=== PATIENT | male | born 1955 | race Caucasian/White ===

== ENCOUNTER 2017-09-17 14:38 | Inpatient (IN) | payer OTHER ==
[2017-09-17] MEDS: SOD CHLORIDE 0.9% 1,000 ML IV (14:45)
[2017-09-17 15:00] LABS: ADD MAN DIFF? NO
[2017-09-17 15:07] LABS: BASOPHIL # 0.1 10^3/ul (0.0-0.1); BASOPHILS % 0.8 % (0.0-2.0); EOSINOPHILS # 0.2 10^3/ul (0.0-0.5); HEMATOCRIT 39.5 % (42.0-52.0); HEMOGLOBIN 13.1 g/dl (14.0-18.0); LYMPHOCYTES # 1.4 10^3/ul (0.8-2.9); LYMPHOCYTES % 15.8 % (15.0-51.0); MEAN CORPUSCULAR HEMOGLOBIN 35.7 pg (29.0-33.0); MEAN CORPUSCULAR HGB CONC 33.2 g/dl (32.0-37.0); MEAN CORPUSCULAR VOLUME 107.6 fl (82.0-101.0); MEAN PLATELET VOLUME 10.9 fl (7.4-10.4); MONOCYTE # 0.3 10^3/ul (0.3-0.9); MONOCYTES % 3.2 % (0.0-11.0); PLATELET COUNT 127 10^3/UL (140-415); RED BLOOD COUNT 3.67 10^6/ul (4.70-6.10); RED CELL DISTRIBUTION WIDTH 15.2 % (11.5-14.5)
[2017-09-17 15:23] LABS: ANION GAP 13 (8-16); BLOOD UREA NITROGEN 21 mg/dl (7-20); CALCIUM 8.8 mg/dl (8.4-10.2); CARBON DIOXIDE 25 mmol/L (21-31); CHLORIDE 109 mmol/L (97-110); CREATININE 1.01 mg/dl (0.61-1.24); GLUCOSE 82 mg/dl (70-220); POTASSIUM 4.5 mmol/L (3.5-5.1); SODIUM 142 mmol/L (135-144)
[2017-09-17 15:35] LABS: TROPONIN-I < 0.012 ng/ml (0.000-0.120)
[2017-09-17 15:38] LABS: INR 1.05; PARTIAL THROMBOPLASTIN TIME 27.2 Sec (25.0-35.0); PROTIME 13.8 Sec (11.9-14.9); PT RATIO 1.1
[2017-09-17] MEDS: HYDROmorphONE 1 MG/5 ML IV SYRINGE IV (15:50)
[2017-09-17] MEDS: ONDANSETRON 4 MG INJ IV (16:17)
[2017-09-17] MEDS: HYDROmorphONE 1 MG/ML SYG IV ×2 (16:17→17:03)
[2017-09-17] MEDS: SOD CHLORIDE 0.45% 1,000 ML IV (17:11)
[2017-09-17] MEDS ORDERED: hydrALAzine 20 MG INJ IV (17:30)
[2017-09-17] MEDS ORDERED: NITROGLYCERIN (SL) 0.4 MG TAB SL (17:30)
[2017-09-17] MEDS ORDERED: MAGNESIUM HYDROXIDE 30ML CUP PO (17:30)
[2017-09-17] MEDS ORDERED: NA PHOSPHATE/BIPHOS 133 ML ENEMA PR (17:30)
[2017-09-17] MEDS ORDERED: DOCUSATE SODIUM 100 MG CAP PO (17:30)
[2017-09-17] MEDS ORDERED: ALBUTEROL/IPRATROPIUM (NEB) 3 ML AMP HHN (17:30)
[2017-09-17] MEDS ORDERED: HYDROCODONE/APAP (5/325) TAB PO (17:30)
[2017-09-17] MEDS ORDERED: ONDANSETRON 4 MG INJ IV ×2 (17:30)
[2017-09-17] MEDS ORDERED: NACL 0.9% 3 ML SYG IV (17:30)
[2017-09-17] MEDS ORDERED: ACETAMINOPHEN 325 MG TAB PO ×2 (17:30)
[2017-09-17 17:42] LABS: FREE T4 (FREE THYROXINE) 1.58 ng/dl (0.78-2.44)
[2017-09-17] MEDS: HYDROmorphONE 0.5 MG/0.5 ML SYG IV (20:39)
[2017-09-17] MEDS: morphine 2 MG INJ IV (22:53)
[2017-09-17] MEDS: LORAZEPAM 2 MG INJ IV (22:54)
[2017-09-18] MEDS: HYDROmorphONE 0.5 MG/0.5 ML SYG IV ×7 (02:33→22:14)
[2017-09-18 05:46] LABS: ADD MAN DIFF? NO
[2017-09-18 05:54] LABS: BASOPHIL # 0.1 10^3/ul (0.0-0.1); BASOPHILS % 0.7 % (0.0-2.0); EOSINOPHILS # 0.4 10^3/ul (0.0-0.5); EOSINOPHILS % 5.2 % (0.0-7.0); LYMPHOCYTES # 1.9 10^3/ul (0.8-2.9); LYMPHOCYTES % 26.9 % (15.0-51.0); MEAN CORPUSCULAR HEMOGLOBIN 35.5 pg (29.0-33.0); MEAN CORPUSCULAR HGB CONC 33.3 g/dl (32.0-37.0); MEAN CORPUSCULAR VOLUME 106.5 fl (82.0-101.0); MEAN PLATELET VOLUME 11.2 fl (7.4-10.4); MONOCYTE # 0.3 10^3/ul (0.3-0.9); MONOCYTES % 4.6 % (0.0-11.0); NEUTROPHIL # 4.5 10^3/ul (1.6-7.5); NEUTROPHILS % 62.5 % (39.0-77.0); PLATELET COUNT 117 10^3/UL (140-415); RED CELL DISTRIBUTION WIDTH 15.2 % (11.5-14.5)
[2017-09-18 05:54] LABS: WHITE BLOOD COUNT 7.1 10^3/ul (4.8-10.8)
[2017-09-18] MEDS: PANTOPRAZOLE 40 MG INJ IV (05:54)
[2017-09-18 06:02] LABS: CHOLESTEROL 151 mg/dl (100-200)
[2017-09-18 06:02] LABS: CHOL/HDL RATIO 4.7 RATIO; HDL CHOLESTEROL 32 mg/dl (30-78); LDL CHOLESTEROL,CALCULATED 96 mg/dl; TRIGLYCERIDES 116 mg/dl (0-149)
[2017-09-18 06:06] LABS: ANION GAP 7 (8-16); BLOOD UREA NITROGEN 22 mg/dl (7-20); CALCIUM 8.3 mg/dl (8.4-10.2); CARBON DIOXIDE 31 mmol/L (21-31); CHLORIDE 111 mmol/L (97-110); CREATININE 0.92 mg/dl (0.61-1.24); GLUCOSE 89 mg/dl (70-220); MAGNESIUM 1.9 mg/dl (1.7-2.5); PHOSPHORUS 3.1 mg/dl (2.5-4.9); POTASSIUM 4.6 mmol/L (3.5-5.1); SODIUM 144 mmol/L (135-144)
[2017-09-18 06:51] LABS: HEMOGLOBIN A1C 5.2 % (0-5.9)
[2017-09-18] MEDS: SOD CHLORIDE 0.45% 1,000 ML IV ×2 (09:30→09:51)
[2017-09-18] MEDS: morphine 2 MG INJ IV (09:48)
[2017-09-18] MEDS ORDERED: FENTAnyl 50 MCG/ML VIAL ×2 (16:18)
[2017-09-18] MEDS ORDERED: NEOSTIGMINE 3 MG/3 ML SYRINGE (16:18)
[2017-09-18] MEDS ORDERED: ALBUMIN HUMAN 5% 250 ML (16:18)
[2017-09-18] MEDS ORDERED: CEFAZOLIN 1 GM INJ (16:18)
[2017-09-18] MEDS ORDERED: ROCURONIUM 50 MG INJ (16:18)
[2017-09-18] MEDS ORDERED: PROPOFOL 20 ML (16:18)
[2017-09-18] MEDS ORDERED: GLYCOPYRROLATE 0.4 MG INJ (16:18)
[2017-09-18] MEDS ORDERED: MIDAZOLAM 1 MG/ML 2 ML INJ (16:18)
[2017-09-18] MEDS ORDERED: ONDANSETRON 4 MG INJ (16:18)
[2017-09-18] MEDS ORDERED: BUPIVACAINE 0.75%/DEXT (SPINAL) 2 ML INJ (16:18)
[2017-09-18] MEDS ORDERED: DEXAMETHASONE 4 MG/ML 1 ML INJ (16:18)
[2017-09-18] MEDS ORDERED: morphine SULFATE/PF (10 MG/10 ML) INJ (16:19)
[2017-09-18] MEDS ORDERED: DEXAMETHASONE 4 MG/ML 1 ML INJ IV (18:30)
[2017-09-18] MEDS ORDERED: LANSOPRAZOLE 30 MG CAP PO (18:30)
[2017-09-18] MEDS ORDERED: ACETAMINOPHEN 1000MG/100ML IV 100 ML IVPB (18:30)
[2017-09-18] MEDS ORDERED: ONDANSETRON 4 MG INJ IV (18:30)
[2017-09-18] MEDS: TRANEXAMIC ACID 1,000 MG in DEXTROSE 5% 100 ML IV ×2 (18:30→19:23)
[2017-09-18] MEDS ORDERED: oxyCODONE (CR) 10 MG TAB [oxyCONTIN] PO (18:30)
[2017-09-18] MEDS ORDERED: ROPIVACAINE 0.2% 60 ML, morphine SULFATE (PF) 4 MG, CLONIDINE 100 MCG, KETOROLAC 30 MG,... INJ (19:00)
[2017-09-18] MEDS: CEFAZOLIN 2 GM/50 ML (PMX) 50 ML (FOR WT < 120 KG) IVPB (19:02)
[2017-09-18] MEDS: POLYMYXIN B 500000 UNIT INJ (19:38)
[2017-09-18] MEDS: BACITRACIN 50000 UNITS INJ (19:38)
[2017-09-18] MEDS ORDERED: ALBUTEROL 0.083% (NEB) 2.5 MG/3 ML AMP HHN (20:00)
[2017-09-18] MEDS ORDERED: NALOXONE (0.4 MG/ML) INJ IV ×2 (20:00→21:00)
[2017-09-18] MEDS ORDERED: OXYCODONE/ACETAMINOPHEN (5/325) TAB PO ×2 (20:00)
[2017-09-18] MEDS ORDERED: IPRATROPIUM (NEB) 0.5 MG/2.5 ML AMP HHN (20:00)
[2017-09-18] MEDS ORDERED: DIPHENHYDRAMINE 50 MG INJ IV (20:00)
[2017-09-18] MEDS ORDERED: hydrALAzine 20 MG INJ IV (20:00)
[2017-09-18] MEDS ORDERED: TRIMETHOBENZAMIDE 100 MG/ML VIAL IM (20:00)
[2017-09-18] MEDS ORDERED: HYDROmorphONE 1 MG/5 ML IV SYRINGE IV ×3 (20:00)
[2017-09-18] MEDS ORDERED: EPHEDrine SULFATE 50 MG/5 ML SYG IV (20:00)
[2017-09-18] MEDS ORDERED: LABETALOL HCL 20MG INJ IV (20:00)
[2017-09-18] MEDS ORDERED: MIDAZOLAM 1 MG/ML 2 ML INJ IV (20:00)
[2017-09-18] MEDS ORDERED: FENTAnyl 50 MCG/ML VIAL IV ×2 (20:00)
[2017-09-18] MEDS ORDERED: oxyCODONE 5 MG TAB PO (21:00)
[2017-09-18] MEDS ORDERED: NACL 0.9% 3 ML SYG IV (21:00)
[2017-09-18] MEDS: FENTAnyl 50 MCG/ML VIAL IV (21:11)
[2017-09-18] MEDS: LACTATED RINGER'S 1,000 ML IV (21:18)
[2017-09-18] MEDS: ASPIRIN (EC) 325 MG TAB PO (21:25)
[2017-09-18] MEDS: CEFAZOLIN 1 GM/50 ML (PMX) 50 ML IVPB (21:25)
[2017-09-18] MEDS: MEPERIDINE 25 MG INJ IV (21:26)
[2017-09-18] MEDS: ONDANSETRON 4 MG INJ IV (21:26)
[2017-09-18] MEDS: LORAZEPAM 2 MG INJ IV (22:23)
[2017-09-18] MEDS: oxyCODONE 5 MG TAB PO (23:19)
[2017-09-19] MEDS: HYDROmorphONE 1 MG/ML SYG IV (01:54)
[2017-09-19] MEDS: morphine (ER) 30 MG TAB PO (02:08)
[2017-09-19] MEDS: HYDROmorphONE 0.5 MG/0.5 ML SYG IV (03:59)
[2017-09-19] MEDS: oxyCODONE 5 MG TAB PO ×6 (04:01→23:34)
[2017-09-19] MEDS: LORAZEPAM 2 MG INJ IV (04:01)
[2017-09-19 05:03] LABS: ADD MAN DIFF? NO
[2017-09-19 05:06] LABS: WHITE BLOOD COUNT 7.5 10^3/ul (4.8-10.8)
[2017-09-19 05:06] LABS: ABNORMAL IP MESSAGE 1; BASOPHILS % 0.1 % (0.0-2.0); HEMATOCRIT 29.7 % (42.0-52.0); HEMOGLOBIN 9.7 g/dl (14.0-18.0); LYMPHOCYTES # 0.5 10^3/ul (0.8-2.9); MEAN CORPUSCULAR HEMOGLOBIN 35.3 pg (29.0-33.0); MEAN CORPUSCULAR HGB CONC 32.7 g/dl (32.0-37.0); MEAN PLATELET VOLUME 10.4 fl (7.4-10.4); MONOCYTE # 0.2 10^3/ul (0.3-0.9); MONOCYTES % 2.7 % (0.0-11.0); NEUTROPHIL # 6.8 10^3/ul (1.6-7.5); NEUTROPHILS % 90.8 % (39.0-77.0); PLATELET COUNT 133 10^3/UL (140-415); POSITIVE DIFF @See below; RED BLOOD COUNT 2.75 10^6/ul (4.70-6.10); RED CELL DISTRIBUTION WIDTH 14.7 % (11.5-14.5)
[2017-09-19] MEDS: SOD CHLORIDE 0.45% 1,000 ML IV ×2 (05:22→20:00)
[2017-09-19] MEDS: CEFAZOLIN 1 GM/50 ML (PMX) 50 ML IVPB ×2 (05:23→13:58)
[2017-09-19 05:27] LABS: ANION GAP 11 (8-16); BLOOD UREA NITROGEN 12 mg/dl (7-20); CALCIUM 8.5 mg/dl (8.4-10.2); CARBON DIOXIDE 27 mmol/L (21-31); CHLORIDE 108 mmol/L (97-110); CREATININE 0.72 mg/dl (0.61-1.24); GLUCOSE 154 mg/dl (70-220); SODIUM 141 mmol/L (135-144)
[2017-09-19 05:33] LABS: INR 1.07; PT RATIO 1.1
[2017-09-19] MEDS: PANTOPRAZOLE 40 MG INJ IV (05:36)
[2017-09-19] MEDS: CELECOXIB 200 MG CAP PO ×2 (08:13→21:53)
[2017-09-19] MEDS: ASPIRIN (EC) 325 MG TAB PO ×2 (08:14→21:53)
[2017-09-19 11:20] LABS: ADD UMIC YES; UR ASCORBIC ACID NEGATIVE (NEGATIVE); UR BACTERIA FEW /HPF (NONE SEEN); UR BILIRUBIN (Dip) NEGATIVE (NEGATIVE); UR BLOOD (Dip) 1+ mg/dL (NEGATIVE); UR CLARITY CLEAR (CLEAR); UR COLOR YELLOW (YELLOW); UR GLUCOSE (Dip) NEGATIVE (NEGATIVE); UR KETONES (Dip) 1+ mg/dL (NEGATIVE); UR LEUKOCYTE ESTERASE (Dip) TRACE Leu/ul (NEGATIVE); UR NITRITE (Dip) NEGATIVE (NEGATIVE); UR RBC 2 /HPF (0-5); UR SPECIFIC GRAVITY (Dip) 1.008 (1.003-1.030); UR TOTAL PROTEIN (Dip) NEGATIVE (NEGATIVE); UR UROBILINOGEN (Dip) NEGATIVE (NEGATIVE); UR WBC 1 /HPF (0-5)
[2017-09-19] MEDS: LACTATED RINGER'S 1,000 ML IV (18:30)
[2017-09-20] MEDS: oxyCODONE 5 MG TAB PO ×8 (03:11→23:57)
[2017-09-20 05:46] LABS: ADD MAN DIFF? NO
[2017-09-20 05:47] LABS: BASOPHILS % 0.1 % (0.0-2.0); EOSINOPHILS % 0.3 % (0.0-7.0); HEMATOCRIT 24.5 % (42.0-52.0); HEMOGLOBIN 8.3 g/dl (14.0-18.0); LYMPHOCYTES # 2.9 10^3/ul (0.8-2.9); LYMPHOCYTES % 24.8 % (15.0-51.0); MEAN CORPUSCULAR HEMOGLOBIN 35.6 pg (29.0-33.0); MEAN CORPUSCULAR HGB CONC 33.9 g/dl (32.0-37.0); MEAN CORPUSCULAR VOLUME 105.2 fl (82.0-101.0); MEAN PLATELET VOLUME 10.9 fl (7.4-10.4); MONOCYTE # 0.9 10^3/ul (0.3-0.9); NEUTROPHIL # 7.7 10^3/ul (1.6-7.5); NEUTROPHILS % 66.4 % (39.0-77.0); PLATELET COUNT 134 10^3/UL (140-415); RED BLOOD COUNT 2.33 10^6/ul (4.70-6.10); RED CELL DISTRIBUTION WIDTH 14.7 % (11.5-14.5)
[2017-09-20 05:47] LABS: WHITE BLOOD COUNT 11.6 10^3/ul (4.8-10.8)
[2017-09-20] MEDS: PANTOPRAZOLE 40 MG INJ IV (06:08)
[2017-09-20 06:14] LABS: INR 1.13; PROTIME 14.7 Sec (11.9-14.9); PT RATIO 1.1
[2017-09-20 06:18] LABS: ANION GAP 6 (8-16); BLOOD UREA NITROGEN 13 mg/dl (7-20); CALCIUM 8.5 mg/dl (8.4-10.2); CARBON DIOXIDE 29 mmol/L (21-31); CHLORIDE 109 mmol/L (97-110); CREATININE 0.88 mg/dl (0.61-1.24); GLUCOSE 100 mg/dl (70-220); POTASSIUM 4.4 mmol/L (3.5-5.1); SODIUM 140 mmol/L (135-144)
[2017-09-20] MEDS: CELECOXIB 200 MG CAP PO ×2 (09:02→21:00)
[2017-09-20] MEDS: ASPIRIN (EC) 325 MG TAB PO ×2 (09:02→21:00)
[2017-09-20] MEDS: SOD CHLORIDE 0.45% 1,000 ML IV (14:50)
[2017-09-20] MEDS: LACTATED RINGER'S 1,000 ML IV (18:06)
[2017-09-21] MEDS: SOD CHLORIDE 0.45% 1,000 ML IV ×2 (02:19→17:30)
[2017-09-21] MEDS: oxyCODONE 5 MG TAB PO ×7 (02:56→21:18)
[2017-09-21 05:12] LABS: ADD MAN DIFF? NO
[2017-09-21 05:19] LABS: WHITE BLOOD COUNT 11.2 10^3/ul (4.8-10.8)
[2017-09-21 05:19] LABS: BASOPHILS % 0.4 % (0.0-2.0); EOSINOPHILS # 0.3 10^3/ul (0.0-0.5); EOSINOPHILS % 2.4 % (0.0-7.0); HEMATOCRIT 27.9 % (42.0-52.0); HEMOGLOBIN 9.1 g/dl (14.0-18.0); LYMPHOCYTES # 4.2 10^3/ul (0.8-2.9); LYMPHOCYTES % 37.2 % (15.0-51.0); MEAN CORPUSCULAR HEMOGLOBIN 35.1 pg (29.0-33.0); MEAN CORPUSCULAR HGB CONC 32.6 g/dl (32.0-37.0); MEAN CORPUSCULAR VOLUME 107.7 fl (82.0-101.0); MEAN PLATELET VOLUME 10.6 fl (7.4-10.4); MONOCYTE # 0.8 10^3/ul (0.3-0.9); MONOCYTES % 6.7 % (0.0-11.0); NEUTROPHIL # 5.9 10^3/ul (1.6-7.5); PLATELET COUNT 162 10^3/UL (140-415); RED BLOOD COUNT 2.59 10^6/ul (4.70-6.10); RED CELL DISTRIBUTION WIDTH 14.9 % (11.5-14.5)
[2017-09-21 05:34] LABS: INR 1.01; PROTIME 13.4 Sec (11.9-14.9)
[2017-09-21 05:42] LABS: ANION GAP 3 (8-16); BLOOD UREA NITROGEN 12 mg/dl (7-20); CALCIUM 8.8 mg/dl (8.4-10.2); CARBON DIOXIDE 34 mmol/L (21-31); CHLORIDE 107 mmol/L (97-110); CREATININE 0.92 mg/dl (0.61-1.24); GLUCOSE 88 mg/dl (70-220); SODIUM 140 mmol/L (135-144)
[2017-09-21] MEDS: PANTOPRAZOLE 40 MG INJ IV (05:55)
[2017-09-21] MEDS: ASPIRIN (EC) 325 MG TAB PO ×2 (08:58→20:31)
[2017-09-21] MEDS: CELECOXIB 200 MG CAP PO ×2 (08:58→20:31)
[2017-09-21] MEDS: LACTATED RINGER'S 1,000 ML IV (18:30)
[2017-09-21] MEDS ORDERED: ARTIFICIAL TEARS 15 ML OPH BOTH EYES (20:00)
[2017-09-21] MEDS: ARTIFICIAL TEARS 15 ML OPH BOTH EYES (20:51)
[2017-09-22] MEDS: oxyCODONE 5 MG TAB PO ×4 (00:08→09:18)
[2017-09-22 05:43] LABS: ADD MAN DIFF? NO
[2017-09-22 05:51] LABS: WHITE BLOOD COUNT 8.5 10^3/ul (4.8-10.8)
[2017-09-22 05:51] LABS: BASOPHIL # 0.1 10^3/ul (0.0-0.1); BASOPHILS % 0.8 % (0.0-2.0); EOSINOPHILS # 0.3 10^3/ul (0.0-0.5); EOSINOPHILS % 2.9 % (0.0-7.0); HEMATOCRIT 25.9 % (42.0-52.0); HEMOGLOBIN 8.6 g/dl (14.0-18.0); LYMPHOCYTES # 2.9 10^3/ul (0.8-2.9); LYMPHOCYTES % 34.2 % (15.0-51.0); MEAN CORPUSCULAR HEMOGLOBIN 35.4 pg (29.0-33.0); MEAN CORPUSCULAR HGB CONC 33.2 g/dl (32.0-37.0); MEAN CORPUSCULAR VOLUME 106.6 fl (82.0-101.0); MEAN PLATELET VOLUME 10.4 fl (7.4-10.4); MONOCYTE # 0.6 10^3/ul (0.3-0.9); MONOCYTES % 7.5 % (0.0-11.0); NEUTROPHIL # 4.6 10^3/ul (1.6-7.5); NEUTROPHILS % 54.4 % (39.0-77.0); PLATELET COUNT 180 10^3/UL (140-415); RED BLOOD COUNT 2.43 10^6/ul (4.70-6.10); RED CELL DISTRIBUTION WIDTH 14.6 % (11.5-14.5)
[2017-09-22 06:02] LABS: INR 1.07; PT RATIO 1.1
[2017-09-22] MEDS: PANTOPRAZOLE 40 MG INJ IV (06:09)
[2017-09-22 06:18] LABS: BLOOD UREA NITROGEN 13 mg/dl (7-20); CALCIUM 8.4 mg/dl (8.4-10.2); CARBON DIOXIDE 30 mmol/L (21-31); CHLORIDE 105 mmol/L (97-110); CREATININE 0.91 mg/dl (0.61-1.24); GLUCOSE 91 mg/dl (70-220); SODIUM 141 mmol/L (135-144)
[2017-09-22 06:19] LABS: ANION GAP 10 (8-16)
[2017-09-22] MEDS: SOD CHLORIDE 0.45% 1,000 ML IV (06:50)
[2017-09-22] MEDS: ASPIRIN (EC) 325 MG TAB PO (09:17)
[2017-09-22] MEDS: CELECOXIB 200 MG CAP PO (09:17)
[2017-09-22] MEDS: HYDROCODONE/APAP (5/325) TAB PO ×2 (12:15→17:05)
[2017-09-22] MEDS: traMADol 50 MG TAB PO (15:25)
== END 2017-09-22 18:00 | disposition home or self-care (01) | DRG 470 ==
LOC: E/R 14:38 → MS1 17:08
PROC: 0SRB04A Replacement of Left Hip Joint with Ceramic on Polyethylene Synthetic Substitute, Uncemented, Open Approach (ICD-10-PCS; principal; 2017-09-18 17:00)
PROC: 8E0YXBZ Computer Assisted Procedure of Lower Extremity (ICD-10-PCS; 2017-09-18 17:00)
DX: S72.092A Other fracture of head and neck of left femur, initial encounter for closed fracture (principal); D62 Acute posthemorrhagic anemia; F17.210 Nicotine dependence, cigarettes, uncomplicated; D69.6 Thrombocytopenia, unspecified; W18.39XA Other fall on same level, initial encounter; Y92.019 Unspecified place in single-family (private) house as the place of occurrence of the external cause; Z98.890 Other specified postprocedural states
CPT/HCPCS: 36415; 71045; 72170; 73500; 73530; 73550; 73700; 80048; 80061; 81001; 82962; 83036; 83735; 84100; 84439; 84443; 84484; 85025; 85610; 85730; 86850; 86900; 86901; 87086; 88304; 88311; 93005; 96361; 96374; 96375; 96376; 97110; 97116; 97161; 97165; 97530; 99285-25